=== PATIENT | female | born 1995 | race American Indian/Alaskan Native ===

== ENCOUNTER 2020-06-23 08:29 | Emergency (ER) | payer SELFPAY ==
--- NOTE | 2020-06-23 08:42 | Event Note ---
ED Screening Note ED Screening Note: abd pain n/v loose stool x 1 today hx gastritis VSS This initial assessment/diagnostic orders/clinical plan/treatment(s) is/are subject to change based on patients health status, clinical progression and re- assessment by fellow clinical providers in the ED. Further treatment and workup at subsequent clinical providers discretion. Patient/guardian urged not to elope from the ED as their condition may be serious if not clinically assessed and managed. Initial orders include: GI cocktail
[2020-06-23 08:46] VITALS: BP 156/99
[2020-06-23] MEDS ORDERED: ALUM-MAG HYDROXIDE-SIMETHICONE 200-200-20MG/5ML ORAL LIQD 30 ML PO ONE (08:48)
[2020-06-23] MEDS ORDERED: LIDOCAINE VISCOUS 2% 15 ML ORAL LIQD PO ONE (08:48)
[2020-06-23] MEDS ORDERED: FAMOTIDINE 20 MG TAB PO ONE (08:48)
--- NOTE | 2020-06-23 09:55 | Emergency Department Report ---
ED Abdominal Pain HPI - General Chief Complaint: Abdominal Pain Stated Complaint: ABD PAIN, VOMITING PUI?: No Time Seen by Provider: 06/23/20 08:41 Source: patient Mode of arrival: Ambulatory Limitations: No Limitations - History of Present Illness Initial Comments: Patient is a 25-year-old -[place] female that comes to the ER with epigastric pain. This is acute on chronic. She has a history of GERD. She is new to the area and not taking her medications. She has no abdominal pain on palpation. No fever or chills. No dysuria. No nausea vomiting or diarrhea. She did not take any medications prior to arrival in the ER. MD Complaint: abdominal pain -: Sudden, hour(s) Location: epigastric Radiation: none Migration to: no migration Improves With: nothing Worsens With: nothing Associated Symptoms: denies other symptoms - Related Data LMP (females 10-50): last week Previous Rx's Medication Instructions Recorded Last Taken Type Pantoprazole [Protonix] 40 mg PO QDAY #30 tablet 06/23/20 Unknown Rx Allergies Allergy/AdvReac Type Severity Reaction Status Date / Time No Known Allergies Allergy Verified 06/23/20 08:46 ED Review of Systems ROS: Stated complaint: ABD PAIN, VOMITING Other details as noted in HPI Comment: All other systems reviewed and negative ED Past Medical Hx - Past Medical History Previous Medical History?: No - Surgical History Past Surgical History?: No - Family History Family history: no significant - Social History Smoking Status: Current Every Day Smoker Substance Use Type: None - Medications Home Medications: Home Medications Medication Instructions Recorded Confirmed Last Taken Type Pantoprazole [Protonix] 40 mg PO QDAY #30 tablet 06/23/20 Unknown Rx ED Physical Exam - General Limitations: No Limitations General appearance: alert, in no apparent distress - Head Head exam: Present: atraumatic, normocephalic - Eye Eye exam: Present: normal appearance - ENT ENT exam: Present: mucous membranes moist - Neck Neck exam: Present: normal inspection - Respiratory Respiratory exam: Present: normal lung sounds bilaterally. Absent: respiratory distress - Cardiovascular Cardiovascular Exam: Present: regular rate, normal rhythm. Absent: systolic murmur, diastolic murmur, rubs, gallop - GI/Abdominal GI/Abdominal exam: Present: soft, normal bowel sounds - Extremities Exam Extremities exam: Present: normal inspection - Back Exam Back exam: Present: normal inspection - Neurological Exam Neurological exam: Present: alert, oriented X3 - Psychiatric Psychiatric exam: Present: normal affect, normal mood - Skin Skin exam: Present: warm, dry, intact, normal color. Absent: rash ED Course Vital Signs 06/23/20 08:42 Temperature 97.9 F Pulse Rate 74 Respiratory 18 Rate Blood Pressure 156/99 O2 Sat by Pulse 99 Oximetry ED Medical Decision Making - Medical Decision Making Acute on chronic history of GERD. Patient given GI cocktail with relief of pain. Patient taking p.o. Patient has stable vital signs. Her abdominal exam is unremarkable. last menstrual period 2 weeks ago. Vital Signs 06/23/20 08:42 Temperature 97.9 F Pulse Rate 74 Respiratory 18 Rate Blood Pressure 156/99 O2 Sat by Pulse 99 Oximetry Patient being discharged home with discharge plan of care including medications for GERD. Have given her her Protonix. Have given a referral to primary care for ongoing care. Patient verbalizes understanding of discharge plan of care. - Differential Diagnosis gerd Critical care attestation.: If time is entered above; I have spent that time in minutes in the direct care of this critically ill patient, excluding procedure time. ED Disposition Clinical Impression: Chronic GERD Disposition: DC-01 TO HOME OR SELFCARE Is pt being admited?: No Does the pt Need Aspirin: No Condition: Stable Instructions: Indigestion, Rulo-mt-Coea, Abdominal Pain (ED) Additional Instructions: bland diet avoid alcohol med as ordered today follow up with pcp/GI MD referrals below Prescriptions: Pantoprazole [Protonix] 40 mg PO QDAY #30 tablet Referrals: PRIMARY MD TAMELA [Primary Care Provider] - 3-5 Days JENNIFER GRIMALDO MD [Staff Physician] - 3-5 Days RAFAT CALABRESE MD [Staff Physician] - 3-5 Days Time of Disposition: 09:53
== END 2020-06-23 10:08 | disposition home or self-care (01) ==
LOC: ED 08:29
DX: K21.9 Gastro-esophageal reflux disease without esophagitis (principal); G89.29 Other chronic pain; F17.200 Nicotine dependence, unspecified, uncomplicated; Z79.899 Other long term (current) drug therapy
CPT/HCPCS: 99282